=== PATIENT | female | born 1950 | race Caucasian/White ===

== ENCOUNTER 2017-04-26 11:00 | Outpatient (CLI) | payer MEDICARE, BC | END 2017-04-26 11:01 | disposition home or self-care (01) | LOC: BICMAMMO 11:00 | PROVIDERS: ATTEND Obstetrics & Gynecology | DX: Z12.31 Encounter for screening mammogram for malignant neoplasm of breast (principal) | CPT/HCPCS: 77063; 77067 ==

== ENCOUNTER 2018-01-28 06:45 | Day surgery (SDC) | payer MEDICARE, BC ==
[2018-01-27 10:16] VITALS: BMI 30.4
--- NOTE | 2018-01-28 04:13 | HP ---
SHORT STAY HISTORY AND PHYSICAL DATE OF ADMISSION: 01/28/2018 HISTORY OF PRESENT ILLNESS: This is a 67-year-old female who comes for a colonoscopy for colon cancer screening. The patient has no specific GI symptoms. Her bowel movements are regular. She has no history of hematochezia. The patient is known to have chronic acid reflux and recently has been placed on Zantac 150 twice a day. She has no abdominal pain, no dysphagia. ALLERGIES: None. MEDICAL ILLNESSES: Chronic acid reflux with heartburn, indigestion and recently placed on Zantac. She has _ no history of hypertension, diabetes mellitus. PHYSICAL EXAMINATION: VITAL SIGNS: Pulse is 70, blood pressure 130/70. HEENT: Conjunctivae clear. CARDIOVASCULAR SYSTEM: First and second heart sounds normal. LUNGS: Clear to auscultation. ABDOMEN: Soft to palpate. No organomegaly. No tenderness. No masses. EXTREMITIES: Reveal no edema. ADMITTING DIAGNOSES: 1. Colon cancer screening. 2. Chronic acid reflux. PLAN: Colonoscopy. VIN
--- NOTE | 2018-01-28 11:04 | OP ---
DATE OF PROCEDURE: 01/28/2018 SURGEON: Britni Del Castillo M.D. OPERATIVE PROCEDURE: Colonoscopy. PREOPERATIVE DIAGNOSIS: The patient is a 67-year-old female undergoing colonoscopy for col on cancer screening. POSTOPERATIVE DIAGNOSES: 1. Mild sigmoid diverticular disease. 2. Hemorrhoids. PROCEDURE IN DETAIL: The patient was placed on her left lateral position and was given sedation by A nesthesia Department. A rectal exam was done before the scope was advanced into the rectum. No lesi on felt on rectal exam. A Pentax video colonoscope was introduced into the rectum and advanced all t he way into the cecum. The prep was good. The mucosa appears normal throughout the colon. The appe ndiceal orifice, ileocecal valve, cecum, no pathology seen. The ascending colon, hepatic flexure, an d transverse colon, splenic flexure, and descending colon, no pathology seen. The sigmoid colon show ed mild diverticular disease. Rectum showed hemorrhoids. DISCHARGE PLANNING: This is a 67-year-old female who came [facility]. She underwent colonoscopy and was found to have sigmoid diverticular disease and hemor rhoids. DISCHARGE RECOMMENDATIONS: 1. The patient advised to call me if she develops abdominal pain and hematochezia. 2. In the absence of any of the above symptoms, she is to come back to me in 2 weeks.
[2018-01-28] MEDS ORDERED: Lidocaine 1% PF 5 ML VIAL ONE (13:35)
[2018-01-28] MEDS ORDERED: PROPOFOL 200 MG/20 ML VIAL ONE (13:35)
== END 2018-01-28 10:44 | disposition home or self-care (01) ==
LOC: SDC 06:45
PROVIDERS: ATTEND Internal Medicine Gastroenterology
PROC: 0DJD8ZZ Inspection of Lower Intestinal Tract, Via Natural or Artificial Opening Endoscopic (ICD-10-PCS; principal; 2018-01-28)
DX: Z12.11 Encounter for screening for malignant neoplasm of colon (principal); K57.30 Diverticulosis of large intestine without perforation or abscess without bleeding; K64.9 Unspecified hemorrhoids; K21.9 Gastro-esophageal reflux disease without esophagitis; Z79.899 Other long term (current) drug therapy
CPT/HCPCS: J2001; J2704

== ENCOUNTER 2018-10-07 10:25 | Outpatient (CLI) | payer MEDICARE, BC ==
--- NOTE | 2018-10-07 13:30 | MMO ---
Bilateral MAMMO Bilat Screen [facility]DI. CLINICAL HISTORY: Patient is 68 years old and is seen for screening. The patient has no family history of breast cancer. The patient has no personal history of cancer. VIEWS: The views performed were: bilateral craniocaudal and bilateral mediolateral oblique. FILMS COMPARED: The present examination has been compared to prior imaging studies performed at [facility] on 07/03/2010, 04/26/2012, 09/25/2014 and 04/26/2017. This study has been interpreted with the assistance of computer-aided detection. MAMMOGRAM FINDINGS: There are scattered fibroglandular densities. There are no suspicious masses, calcifications or areas of architectural distortion. There are benign appearing calcifications in both breasts. There are no suspicious masses, suspicious calcifications, or new areas of architectural distortion. IMPRESSION: THERE IS NO MAMMOGRAPHIC EVIDENCE OF MALIGNANCY. A ROUTINE FOLLOW-UP MAMMOGRAM IN 1 YEAR IS RECOMMENDED. ACR BI-RADS Category 2 - Benign finding MAMMOGRAPHY NOTE: 1. A negative mammogram report should not delay a biopsy if a dominant of clinically suspicious mass is present. 2. Approximately 10% to 15% of breast cancers are not detected by mammography. 3. Adenosis and dense breasts may obscure an underlying neoplasm.
== END 2018-10-07 10:26 | disposition home or self-care (01) ==
LOC: SCSMAMMO 10:25
PROVIDERS: ATTEND Obstetrics & Gynecology
DX: Z12.31 Encounter for screening mammogram for malignant neoplasm of breast (principal)
CPT/HCPCS: 77067

== ENCOUNTER 2019-07-11 10:33 | Outpatient (CLI) | payer MEDICARE, BC ==
--- NOTE | 2019-07-11 13:22 | MRI ---
MRI ABDOMEN WITH AND WITHOUT CONTRAST: HISTORY: R94.5, abnormal liver function tests. COMPARISON: MRI 2013 and 2012 as well as ultrasound 2018. FINDINGS: No significant pericardial effusion. No pleural effusion. No significant hepatic steatosis. No hydronephrosis. The spleen is unremarkable. Prior cholecystectomy. There is extensive debris within the common bile duct. The common bile duct is mildly dilated measuring up to 1 cm. There is no significant intrahepatic biliary dilatation. Normal renal parenchymal enhancement. The portal vein is patent. The aortic contour is nonaneurysmal. No dilated loops of bowel in the abdomen. No abnormal enhancing hepatic mass. No abnormal enhancing renal mass. No abnormal mass of the pancr eas. No pancreatic ductal dilatation. IMPRESSION: 1. Mildly prominent common bile duct with intraluminal debris which is nonenhanced and is along the nondependent portion of the duct. This is best seen on the coronal FASE series 4 image 24 sequence a nd appears to be 2 foci, each measuring approximately 11-12 mm in length with a width of 4-5 mm. The se are not enhancing and suggest adherent debris. This is nonobstructive and there is no intrahepati c biliary dilatation and this is before the insertion with the pancreatic duct as there is no pancrea tic ductal dilatation. 2. No abnormal enhancing mass of the pancreas or liver. 3. Similar mild prominence of the left intrahepatic bile duct. This is likely reservoir effect from prior cholecystectomy. 4. Small focus of scar, likely the sequelae of prior infection along the right posterior hepatic cap jaguar, resolved from the 2014 study. POS: HOME
[2019-07-11] MEDS ORDERED: Magnevist 469MG/ML 20 ML VIAL ONE (15:44)
== END 2019-07-11 10:34 | disposition home or self-care (01) ==
LOC: BICMRI 10:33
PROVIDERS: ATTEND Internal Medicine Gastroenterology
DX: R10.13 Epigastric pain (principal); R94.5 Abnormal results of liver function studies
CPT/HCPCS: 74183; A9579

== ENCOUNTER 2019-07-12 10:23 | Day surgery (SDC) | payer MEDICARE, BC ==
[2019-07-11 14:23] VITALS: BMI 29.9
[~2019-07-12 10:23] MED LIST: Dexamethasone 20 MG/5 ML VIAL ONE; Lidocaine 1% PF 5 ML VIAL ONE; Ondansetron PF 4 MG/2 ML Vial ONE; PROPOFOL 200 MG/20 ML VIAL ONE; Succinylcholine Chloride 20 MG/ML 10 ml SYRINGE FS ONE; diphenhydrAMINE 50 MG/ML VIAL ONE
[2019-07-12] MEDS ORDERED: Indomethacin 50 MG SUPP ONE ×2 (10:42→10:54)
[2019-07-12] MEDS ORDERED: Iothalamate Meglumine 60% 50 ML VIAL FS ONE (10:42)
[2019-07-12] MEDS ORDERED: Fentanyl 100 MCG/2 ML VIAL ONE ×2 (10:46)
[2019-07-12] MEDS ORDERED: Levofloxacin 500 mg/D5W 100 ml Premix Bag ONE (11:18)
--- NOTE | 2019-07-12 12:35 | OP ---
DATE OF PROCEDURE: 07/12/2019 PROCEDURE PERFORMED: Endoscopic retrograde cholangiopancreatography with sphincterotomy and balloon stone extraction. PREOPERATIVE DIAGNOSIS: Choledocholithiasis with cholestasis and elevated LFTs and pruritus. DESCRIPTION OF PROCEDURE: Informed consent was obtained from the patient. She was sedated with general anesthesia. The bite block was placed and she was placed in the prone position. The duodenoscope was advanced easily to the second portion of the duodenum. The ampulla was identified and there was a prior sphincterotomy, which appeared open with flow of clear yellow bile, however, it had scarred down a fair amount. The sphincterotomy was extended by few centimeters. The ampulla was located within a duodenal diverticulum. The ampulla was too tight to pass a 12-mm balloon through prior to the extension of the sphincterotomy. After extension of the sphincterotomy, the 15-mm balloon could be passed through the sphincterotomy without significant resistance. Cholangiogram showed normal intrahepatic ducts and a common bile duct dilated to 13 mm with multiple filling defects and air. Balloon sweep of the bile duct with a 15-mm balloon revealed two large soft yellow pigment stones, which were extracted from the duct. Occlusion cholangiogram after that was clear. The air and fluid were suctioned from the stomach and she tolerated the procedure well. IMPRESSION: 1. Prior sphincterotomy in a periampullary duodenal diverticulum. The prior sphincterotomy had scarred down somewhat and the sphincterotomy was extended several millimeters with a sphincterotome. 2. Choledocholithiasis. Cholangiogram shows multiple filling defects in the distal bile duct and air. The common bile duct was dilated to 13 mm and the intrahepatic ducts were normal. 3. Balloon sweep of the bile duct with a 15-mm balloon achieves removal of two large soft yellow pigment stones. Occlusion cholangiogram after that confirmed the duct to be clear. RECOMMENDATIONS: 1. Continue Ursodiol. 2. Follow up in GI clinic in a month with repeat LFTs. 3. She should be good to discharge home today as an outpatient. Job ID: [id number]
[2019-07-12] MEDS ORDERED: HYDROcodone/Acetaminophen 5/325 mg Tablet ONE (12:59)
--- NOTE | 2019-07-12 13:41 | RAD ---
ERCP: HISTORY: Choledocholithiasis. FINDINGS/IMPRESSION: Four spot fluoroscopic images of the right upper quadrant during ERCP and demonstrate filling defects consistent with choledocholithiasis. POS: [facility]
== END 2019-07-12 14:18 | disposition home or self-care (01) ==
LOC: SDC 10:23
PROVIDERS: ATTEND Internal Medicine Gastroenterology
PROC: 0F798ZZ Dilation of Common Bile Duct, Via Natural or Artificial Opening Endoscopic (ICD-10-PCS; principal; 2019-07-12)
PROC: 0FC98ZZ Extirpation of Matter from Common Bile Duct, Via Natural or Artificial Opening Endoscopic (ICD-10-PCS; 2019-07-12)
DX: K80.51 Calculus of bile duct without cholangitis or cholecystitis with obstruction (principal); F32.9 Major depressive disorder, single episode, unspecified; Z79.899 Other long term (current) drug therapy; Z90.49 Acquired absence of other specified parts of digestive tract
CPT/HCPCS: 43262; 43264; 74330; C1769; J1100; J1200; J1610; J1956; J2001; J2405; J2704; J3010